=== PATIENT | female | born 1965 | race Caucasian/White ===

== ENCOUNTER → 2017-03-30 | Outpatient (CLI) | payer OTHER | LOC: FIMAGING 14:18 | PROVIDERS: ATTEND Specialist | DX: N20.0 Calculus of kidney (principal) ==

== ENCOUNTER → 2017-11-28 | Outpatient (CLI) | payer OTHER | LOC: FIMAGING 13:04 → EDSTATUS 13:05 | PROVIDERS: ATTEND Physician Assistant | DX: Z98.1 Arthrodesis status (principal) ==

== ENCOUNTER 2018-10-03 13:16 | Emergency (ER) | payer OTHER ==
--- NOTE | 2018-10-03 13:44 | EDPHY ---
H & P Smoking Status: Never smoked Time Seen by Provider: 10/03/18 13:36 HPI/ROS: CHIEF COMPLAINT: Left popliteal fossa pain x1 month, concerns over DVT HISTORY OF PRESENT ILLNESS: 53-year-old female with no known vasculopathy history complaining of 1 month of left popliteal fossa pain, called her PCP who recommend she come to the ER for ultrasound. Pain present for the past 1 month , exacerbated with weight-bearing. No discoloration. No trauma history. Full flexion and extension. No dyspnea. No chest pain. No headache. PHYSICAL EXAM (Prior to examination, patient consented to physical exam, hands were washed and my usual and customary physical exam procedures followed) 1) GENERAL: Well-developed, well-nourished, alert and oriented. Appears to be in no acute distress. 2) HEAD: Normocephalic 3) HEENT: sclera anicteric 4) LUNGS: Breathing comfortably. 5) SKIN: Normal coloration. 6) MUSCULOSKELETAL: Tender to palpation left popliteal fossa with no discoloration. No fluctuance. Full flexion extension left knee. No pain with axial loading of the joint. Distal DP PT pulses present and brisk. Soft compartments 7) NEUROLOGIC: Full sensation distally. Differential diagnosis: In no particular order including but not limited to Calvert cyst, DVT, compartment syndrome (Emile Ramon) Constitutional: Initial Vital Signs Temperature (C) 37.1 C 10/03/18 13:30 Heart Rate 82 10/03/18 13:30 Respiratory Rate 16 10/03/18 13:30 Blood Pressure 125/81 H 10/03/18 13:30 O2 Sat (%) 94 10/03/18 13:30 O2 Delivery Mode Room Air Allergies/Adverse Reactions: NUTS Allergy (Uncoded 10/03/18 13:29) Home Medications: Medication Instructions Recorded Escitalopram Oxalate [Lexapro 10 10 mg PO DAILY 07/23/15 MG] Doxycycline Hyclate 10/03/18 Spironolactone 10/03/18 traZODone 10/03/18 MDM/Departure - MDM Imaging Results: Imaging Impressions Extremity Venous Study 10/03/18 13:40 Impression: No deep venous thrombosis left leg. Findings and recommendations discussed with Emergency Department physicianEmile PA-C at 1519 hour, 10/03/2018. Final report concurs with initial preliminary interpretation. Images reviewed myself (Emile Ramon) ED Course/Re-evaluation: Care of patient under supervision of secondary supervising physician Dr Delarosa Left lower extremity ultrasound interpreted by staff radiologist, with images reviewed myself at this time shows no DVT, no evidence of Calvert cyst. Re-evaluation with serial exams. Discussed the imaging results with the patient. She is neurovascular intact no evidence of compartment syndrome. Doubt septic arthritis. Plan will be discharge with my usual and customary orthopedic precautions instructions. (Emile Ramon) I did not see this patient while she was in the emergency department. However her care was discussed with the PA while the patient was in the department. I agree with treatment plan and management (Klaus Delarosa) - Depart Disposition: Home, Routine, Self-Care Clinical Impression: Knee pain, acute Qualifiers: Laterality: left Qualified Code(s): M25.562 - Pain in left knee Condition: Good Instructions: Knee Pain (ED) Additional Instructions: Return to the ER immediately if you experience discoloration, have worsening pain, numbness, tingling, or any other symptoms that concern you. If you received x-rays in the emergency department today, be advised, that ligamentous , tendon, muscular, and other non-bony injury cannot be fully ruled out. Try to keep your affected extremity elevated above the level of your chest, and keep cold packs on the affected area, for the next 48 hours. Referrals: All Quinonez, [Primary Care Provider] - As per Instructions
[2018-10-03 15:34] VITALS: BP 112/74
== END 2018-10-03 15:35 | disposition home or self-care (01) ==
DX: M25.562 Pain in left knee (principal); Z86.79 Personal history of other diseases of the circulatory system

== ENCOUNTER 2018-10-16 06:18 | Emergency (ER) | payer OTHER ==
[2018-10-16 06:23] VITALS: BP 106/79
--- NOTE | 2018-10-16 06:41 | EDPHY ---
H & P Stated Complaint: left knee injury Time Seen by Provider: 10/16/18 06:41 HPI/ROS: HPI CHIEF COMPLAINT: Left knee pain. HISTORY OF PRESENT ILLNESS: Patient very pleasant 53-year-old female, she presents emergency room left lateral knee pain. [place] and slipped and fell and landed on her left gluteus her left leg turned inward underneath the for and she developed left lateral knee pain. This has bothered her all of last night. She complains of left lateral knee pain. Denies hip pain, denies foot pain. She is able to bear weight, but with range of motion specifically has discomfort over the left lateral knee. No direct trauma to the knee. Did not land on areas however believe she turned her knee abnormally. Past Medical History: Takes trazodone for sleep. Depression. History of staph infection Past Surgical History: No recent surgery Social History: Denies drugs alcohol tobacco. Family History: Noncontributory. ROS REVIEW OF SYSTEMS: 10 Systems were reviewed and negative with the exception of the elements mentioned in the history of present illness. Exam Constitutional triage nursing summary reviewed, vital signs reviewed, awake/ alert. Eyes normal conjunctivae and sclera, EOMI, PERRLA. HENT normal inspection, atraumatic, moist mucus membranes, no epistaxis, neck supple/ no meningismus, no raccoon eyes. Respiratory clear to auscultation bilaterally, normal breath sounds, no respiratory distress, no wheezing. Cardiovascular rate normal, regular rhythm, no murmur, no edema, distal pulses normal. Gastrointestinal soft, non-tender, no rebound, no guarding, normal bowel sounds, no distension, no pulsatile mass. Genitourinary no CVA tenderness. Musculoskeletal left lower extremity: Neurovascular intact good distal pulse, good cap refill, mild tender palpation over the left lateral joint line. No crepitus, negative anterior-posterior drawer sign. No popliteal tenderness. Good distal pulse. Good cap refill. Warm extremity. no midline vertebral tenderness, full range of motion, no calf swelling, no tenderness of extremities, no meningismus, good pulses, neurovascularly intact. Skin pink, warm, & dry, no rash, skin atraumatic. Neurologic awake, alert and oriented x 3, AAOx3, moves all 4 extremities equally, motor intact, sensory intact, CN II-XII intact, normal cerebellar, normal vision, normal speech. Psychiatric normal mood/affect. Heme/Lymph/Immune no lymphadenopathy. Differential Diagnosis: Includes but is not limited to in a particular order left knee sprain, left knee contusion, ligamentous injury, meniscal injury, fracture, tibial plateau fracture Medical Decision Making: Plan for this patient she declined pain medicine here in emergency room, agrees for x-ray of the left knee, recommend ice pack, crutches, knee immobilizer. I do recommend she follows up with Orthopedics. Re-evaluation: X-ray of the left knee reviewed. Negative for acute traumatic injury no bony abnormality interpreted by myself. No fracture appreciated. I explained the patient that she should stay in a knee immobilizer follow up with Orthopedics, crutches to help ambulate, anti-inflammatory pain medicine and ice. Elevation. Recommend follow up with Orthopedics. I explained that we did rule out a fracture however ligamentous and meniscal injury is still possible and she should follow up. She understands and is comfortable this plan. Crutches and knee immobilizer provided. Orthopedic referral provided Return precautions discussed. Source: Patient - Personal History Tetanus Vaccine Date: 2006 - Medical/Surgical History Hx Asthma: No Hx Chronic Respiratory Disease: No Hx Diabetes: No Hx Cardiac Disease: No Hx Renal Disease: No Hx Cirrhosis: No Hx Alcoholism: No Hx HIV/AIDS: No Hx Splenectomy or Spleen Trauma: No Other PMH: RANDI, C SECT, L OVARY REMOVED, KIDNEY STONE; R knee sx; C4-C6 discectomy - Social History Smoking Status: Never smoked Constitutional: Initial Vital Signs Temperature (C) 36.8 C 10/16/18 06:21 Heart Rate 67 10/16/18 06:21 Respiratory Rate 18 10/16/18 06:21 Blood Pressure 106/79 10/16/18 06:21 O2 Sat (%) 97 10/16/18 06:21 O2 Delivery Mode Room Air Allergies/Adverse Reactions: NUTS Allergy (Uncoded 10/16/18 06:21) Home Medications: Medication Instructions Recorded Escitalopram Oxalate [Lexapro 10 10 mg PO DAILY 07/23/15 MG] Doxycycline Hyclate 10/03/18 Spironolactone 10/03/18 traZODone 10/03/18 Departure - Departure Disposition: Home, Routine, Self-Care Clinical Impression: Knee sprain Condition: Good Instructions: Knee Sprain (ED) Additional Instructions: 1. Recommend elevation 2. Recommend ice 3. Knee immobilizer and crutches to help ambulate supportive care 4. Follow up with Orthopedics. Referrals: All Quinonez DO [Primary Care Provider] - As per Instructions Urszula Ford MD [Medical Doctor] - As per Instructions
== END 2018-10-16 07:20 | disposition home or self-care (01) ==
DX: S83.8X2A Sprain of other specified parts of left knee, initial encounter (principal); W19.XXXA Unspecified fall, initial encounter; Y92.828 Other wilderness area as the place of occurrence of the external cause; Y93.9 Activity, unspecified; Y99.9 Unspecified external cause status
CPT/HCPCS: L1830